=== PATIENT | female | born 1960 | race African-American/Black ===

== ENCOUNTER 2018-08-30 11:13 | Emergency (ER) | payer MEDICAID ==
[2018-08-30] MEDS ORDERED: SUCCINYLCHOLINE 20 MG/ML (10 ML) IV ONE (11:14)
[2018-08-30] MEDS ORDERED: Caclcium Chloride 10% INJ SYR IV ONE (11:14)
[2018-08-30] MEDS ORDERED: ETOMIDATE 20 MG/10 ML VIAL IV ONE (11:14)
--- OUTSIDE RECORDS SUMMARY | 2018-08-30 11:16 | XMS REPORT ---
:1960 [facility] Address [address] [place] [address] Dr. Mesa[address] [place] [id number] Care Team Providers Name Role Phone Unavailable Unavailable Unavailable Problems This patient has no known problems. Allergies, Adverse Reactions, Alerts This patient has no known allergies or adverse reactions. Medications This patient has no known medications.
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
[2018-08-30] MEDS ORDERED: RSI MEDICATION KIT IV ONE (11:20)
[2018-08-30] MEDS ORDERED: MIDAZOLAM HCL 2 MG/2 ML INJ ONE (11:34)
[2018-08-30 11:36] LABS: Absolute Lymphocytes (CBC) 0.6 K/uL (0.7-4.9); Absolute Monocytes 1.4 K/uL (0.1-1.3); Absolute Neutrophil 22.7 K/uL (1.8-8.0); Basophils % 0.2 % (0-1.3); Hematocrit 32.1 % (36.0-45.0); Lymphocytes % 2.5 % (15.3-44.8); MPV 8.8 fL (7.6-11.3); Monocytes % 5.7 % (3.3-12.3); RBC Red Blood Cell Count 3.85 M/uL (3.86-4.86)
[2018-08-30 11:44] LABS: Protime INR 1.06
[2018-08-30] MEDS ORDERED: Nicardipine/NS 25 MG/250 ML KIT IV ONE ×2 (11:46→13:31)
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
--- NOTE | 2018-08-30 11:46 | ER ---
Nurse's Notes 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 Avila at bedside to set up for intubation, RT at bedside. Transition of care: patient was not received from another setting of care. Onset of symptoms was August 30, 2018. Risk Assessment: Do you want to hurt yourself or someone else? Patient reports no desire to harm self or others. Initial Sepsis Screen: Does the patient meet any 2 criteria? No. Patient's initial sepsis screen is negative. Does the patient have a suspected source of infection? No. Patient's initial sepsis screen is negative. Care prior to arrival: Medication(s) given: Normal saline infusion, 500 mL, Labetalol 10 mg X 2, Narcan 2 mg IVP IV initiated. 18 GA, in the left antecubital area, Glucose check: 168 Oxygen administered. via AMBU bag. 11:12 Method Of Arrival: EMS: [facility] iw 11:12 Acuity: ROSITA 1 iw 11:21 Note last known well is 0930 this morning. iw 11:33 An acute neurological deficit is present. The patients blood glucose was checked before iw arriving to the hospital and was found to be normal. Triage Assessment: 11:15 The onset of the patients symptoms was August 30, 2018 at 09:45. General: Appears ill, iw Behavior is listless. Pain: Unable to use pain scale. Patient is unresponsive. Neuro: Reports pt not verbal. Stroke Activation: Physician: Stroke Attending; Name: ; Notified At: ; Arrived At: Physician: Chief Stroke Resident; Name: ; Notified At: ; Arrived At: Physician: Stroke Resident; Name: ; Notified At: ; Arrived At: Physician: ED Attending; Name: Dr. Avila; Notified At: 11:21; Arrived At: 11:21 Physician: ED Resident; Name: ; Notified At: ; Arrived At: Historical: - Allergies: 11:46 No Known Allergies; iw - Home Meds: 11:46 doxazosin 4 mg oral tab 2 tabs once daily [Active]; Dialyvite 100-1 mg oral tab 1 tab iw once daily [Active]; carvedilol 25 mg oral tab 1 tab 2 times per day [Active]; hydralazine 50 mg Oral tab three times a day [Active]; nifedipine 90 mg Oral tr24 twice a day [Active]; Vitamin D Oral daily [Active]; - PMHx: 11:51 Dialysis; Hypertension; iw - Immunization history:: Adult Immunizations unknown. - Social history:: Patient/guardian denies using alcohol, street drugs, The patient lives with family, Smoking status: unknown. - Family history:: not pertinent, pertinent for. - Ebola Screening: : Patient negative for fever greater than or equal to 101.5 degrees Fahrenheit, and additional compatible Ebola Virus Disease symptoms Patient denies exposure to infectious person Patient denies travel to an Ebola-affected area in the 21 days before illness onset No symptoms or risks identified at this time. Screenin:47 Abuse screen: Denies threats or abuse. Denies injuries from another. Nutritional iw screening: No deficits noted. Tuberculosis screening: No symptoms or risk factors identified. Fall Risk IV access (20 points). Assessment: 11:17 Reassessment: pt successfully intubated by Dr. Avila. iw 11:27 Reassessment: pt transported to Ct via stretcher, pt intubated, placed on monitor, iw accompanied by Jh, RN, and RT. 11:53 VAN Scoring: Arm Drift: Flaccid/no antigravity. T-PA (Activase) Screening: Indications: iw Contraindications: Intracranial hemorrhage and its risk factor and suspicion of subarachnoid bleed: Yes. 11:54 Reassessment: pt remains hypertensive at 216/118, cardene drip increased to 15 mg/hr, iw 99% on ventilator, awaiting acceptance to transferring facility. 11:58 Patient has been NPO before screening. The patient is not alert and/or unable to follow iw commands. Bedside swallow screen discontinued. Patient kept NPO until cleared by Speech Therapy or Physician. 11:58 pt is NPO N/A N/A, pt NPO The patient is unable to swallow own secretions without iw drooling or the need for suction. Bedside swallow screening discontinued. Patient kept NPO until cleared by Speech Therapy or Physician. N/A N/A The patient failed the bedside swallow screening. The patient will be kept NPO until cleared by Speech Therapy or Physician. Provider notified of bedside swallow screening results: Ramsey Avila MD. 12:02 Reassessment: Dr. Avila, speaking with pt family about POC and need for transfer. iw 12:37 Reassessment: pt remains on ventilator, respirations even and unlabored, BP down to iw 169/78, family at bedside. Vital Signs: 11:41 BP 226 / 113; Pulse 82; Resp 18 A; Pulse Ox 100% on ETT vent; Weight 99.79 kg (R); iw 11:52 BP 216 / 118; Pulse 91; Resp 16 A; Temp 95.2(C); Pulse Ox 99% on ETT vent; Pain 5/10; iw 12:01 BP 200 / 103; Pulse 93; Resp 18 A; Temp 97.3(C); Pulse Ox 100% on ETT vent; Pain 0/10; iw 12:08 BP 196 / 102; Pulse 87; Resp 20 A; Temp 98.1(C); Pulse Ox 99% on ETT vent; Pain 0/10; iw 12:22 BP 178 / 86; Pulse 86; Resp 24 S; Temp 98.3(O); Pulse Ox 100% on R/A; Weight 99.79 kg jl7 (R); 12:23 BP 178 / 86; Pulse 86; Resp 25 A; Pulse Ox 100% on ETT vent; Pain 0/10; iw 12:36 BP 163 / 79; Pulse 86; Resp 21 A; Temp 98.2(C); Pulse Ox 99% on ETT vent; Pain 0/10; iw 12:46 BP 169 / 79; Pulse 87; Resp 25 S; Temp 98.1(O); Pulse Ox 99% on R/A; jl7 NIH Stroke Scale Scores: 11:15 NIHSS Score: 16 iw 12:38 NIHSS Score: 20 iw ED Course: 11:00 Patient has correct armband on for positive identification. Placed in gown. Bed in low jl7 position. Call light in reach. Side rails up X2. secured entrance monitor on. Pulse ox on. NIBP on. Warm blanket given. 11:16 Patient arrived in ED. iw 11:17 Assisted provider with intubation using 7.5 mm ETT via oral route. ET tube secured at iw 23cm at the teeth. Set up intubation tray. Intubated by Ramsey Avila MD Placement verified by CXR, CO2 detector w/ + color change, auscultating bilateral breath sounds, Patient tolerated well. 11:21 Ramsey Avila MD is Attending Physician. ma2 11:24 CXR XRAY In Process Unspecified. EDMS 11:30 Missed attempt(s): 22 gauge in right hand. Bleeding controlled, band aid applied, ms catheter tip intact. 11:32 Triage completed. iw 11:34 CT Stroke Brain w/o Contrast In Process Unspecified. EDMS 11:35 initiated a transfer with Lexy at the [facility] transfer center. eb 11:43 Maintain EMS IV. Dressing intact. Good blood return noted. Site clean \T\ dry. Gauge \T\ iw site: 18 LAC. 11:[address] Christopher and sealer aircraft pulmonary nurse practitioner from [facility] for eb patient transfer consultation. 11:46 Hayley Pastor, RN is Primary Nurse. iw 12:04 Carroll cath inserted, using sterile technique, 18 Fr., by la, balloon inflated, to ms gravity drainage, urine specimen collected. 12:05 EKG done, by ED staff, reviewed by Ramsey Avila MD. ms 12:10 administrative approval given by Eren Iverson Coord/ Dr. Christopher has accepted eb the patient in transfer/ patient going to [address] [place] [address] bed 74/ report to be called to [phone]. 12:11 Urine collected: Carroll catheter specimen, clear, Amount Returned: 20mL. ms 12:15 Inserted saline lock: 22 gauge in right hand, using aseptic technique. jl7 12:44 Arm band placed on left wrist. jl7 14:15 Patient transferred, IV remains in place. iw Administered Medications: 11:15 Drug: Etomidate 20 mg Route: IVP; Site: left antecubital; 11:17 Follow up: Response: No adverse reaction; Patient is sedated iw 11:15 Drug: Succinylcholine 120 mg Route: IVP; Site: left antecubital; iw 11:17 Follow up: Response: Patient is sedated 11:25 Drug: Versed 5 mg Route: IVP; Site: left antecubital; 11:28 Follow up: Response: No adverse reaction; Patient is sedated 11:40 Drug: niCARdipine (25mg/250ml) 5 mg/hr Route: IV; Rate: calculated rate; Site: left iw antecubital; 11:56 Follow up: Rate change 15 mg/hr iw 12:51 Follow up: Response: No adverse reaction; Blood pressure is lowered iw 12:51 Follow up: IV Status: Infusion continued upon transfer 11:53 Not Given (Duplicate Order): Cardene 5 mg/hr IV at calculated rate continuous; 5mg/hr 12:27 Drug: NS 0.9% 1000 ml Route: IV; Rate: 1 bolus; Site: right hand; jl7 13:24 Follow up: IV Status: Infusion continued upon transfer [facility] 12:27 Drug: Propofol 5 mcg/kg/min Route: IV; Rate: calculated rate; Site: right hand; jl7 12:51 Follow up: IV Status: Infusion continued upon transfer Point of Care Testing: Blood Glucose: 11:17 Blood Glucose: 140 mg/dL; Ranges: Outcome: 11:45 ER care complete, transfer ordered by MD. garcia 14:16 Transferred by ground EMS by helicopter [facility], [facility] transported pt from [place] to [facility]. to [facility], Transfer form completed. X-rays sent w/ patient. 14:16 Condition: stable 14:16 Discharge instructions given to family, Instructed on the need for transfer, Demonstrated understanding of instructions. 14:17 Patient left the ED. NIH Stroke Scale - NIH Stroke Score Date: 08/30/2018 Time: 11:15 Total Score = 16 1a. Level of Consciousness (LOC) - 2(Not Alert, obtunded) 1b. Level of Consciousness (LOC) (Year \T\ Age) - 2(Neither) 1c. LOC Commands (Open \T\ Closes Eyes/[employer]) - 2(Neither) 2. Best Gaze (Lateral Gaze Paresis) - 0(Normal) 3. Visual Field Loss - 0(No visual loss) 4. Facial Palsy - 0(Normal) 5a. Left Arm: Motor (10-second hold) - 4(No movement) 5b. Right Arm: Motor (10-second hold) - 0(No drift) 6a. Left Leg: Motor (5-second hold - always test supine) - 4(No movement) 6b. Right Leg: Motor (5-second hold - always test supine) - 0(No drift) 7. Limb Ataxia (finger/nose \T\ heel/muhammad - test with eyes open) - 0(Absent) 8. Sensory Loss (pinprick arms/legs/face) - 0(Normal) 9. Best Language: Aphasia (description/naming/reading) - 2(Severe aphasia) 10. Dysarthria (speech clarity - read or repeat words) - 9(Intubated) - Notes: pt was bagged via BVM prior to arrival, unable to evaluate speech 11. Extinction and Inattention (visual/tactile/auditory/spatial/personal) - 0(No abnormality) Initials: NIH Stroke Scale - NIH Stroke Score Date: 08/30/2018 Time: 12:38 Total Score = 20 1a. Level of Consciousness (LOC) - 2(Not Alert, obtunded) 1b. Level of Consciousness (LOC) (Year \T\ Age) - 2(Neither) 1c. LOC Commands (Open \T\ Closes Eyes/Sales Ware[employer] Driver) - 2(Neither) 2. Best Gaze (Lateral Gaze Paresis) - 0(Normal) 3. Visual Field Loss - 0(No visual loss) 4. Facial Palsy - 0(Normal) 5a. Left Arm: Motor (10-second hold) - 4(No movement) 5b. Right Arm: Motor (10-second hold) - 0(No drift) 6a. Left Leg: Motor (5-second hold - always test supine) - 4(No movement) 6b. Right Leg: Motor (5-second hold - always test supine) - 0(No drift) 7. Limb Ataxia (finger/nose \T\ heel/muhammad - test with eyes open) - 0(Absent) 8. Sensory Loss (pinprick arms/legs/face) - 2(Severe to total loss) 9. Best Language: Aphasia (description/naming/reading) - 2(Severe aphasia) 10. Dysarthria (speech clarity - read or repeat words) - 9(Intubated) - Notes: pt intibated and not verbal 11. Extinction and Inattention (visual/tactile/auditory/spatial/personal) - 2(Profound) Initials: iw Signatures: Dispatcher [employer] EDHayley Mortensen, RN RN Diamante Ordoñez ms, Jahala, RN RN jl7 Ramsey Avila MD MD ma2 Cherie Spence Corrections: (The following items were deleted from the chart) 11:43 11:41 BP 226 / 113; Pulse 82bpm; Resp 18bpm; Assisted; Pulse Ox 100% ET / iw Ventilator; iw 11:54 11:52 BP 216 / 118; Pulse 91bpm; Resp 16bpm; Assisted; Pulse Ox 99% ET / iw Ventilator; 12:09 11:15 NIHSS Score: 14 [facility] 12:09 12:07 NIHSS Score: 16 [facility] 12:30 11:[address] Avila notified at 11:21, arrived at 11:21
--- NOTE | 2018-08-30 11:53 | RAD REPORT ---
EXAM DESCRIPTION: CT - Ct Stroke Brain Wo Cont - 08/30/2018 11:34 am CLINICAL HISTORY: Confusion COMPARISON: None. TECHNIQUE: Computed axial tomography of the head was obtained. IV contrast was not requested. All CT scans are performed using dose optimization technique as appropriate and may include automated exposure control or mA/KV adjustment according to patient size. FINDINGS: A 4.5 centimeter bleed is present within the right thalamus which extends into the fourth, third and lateral ventricles. There is shift of midline structures a couple millimeters to the left. Mild hydrocephalus suspected. No additional significant abnormality seen. IMPRESSION: 4.5 centimeter bleed in the right thalamus extending into the ventricles probably the se quela of hypertension. Examination was discussed with Dr. Bui in the Emergency Room at 11:41 a.m. August 30, 2018
--- NOTE | 2018-08-30 11:55 | RAD REPORT ---
EXAM DESCRIPTION: Marcos Single View08/30/2018 11:25 am CLINICAL HISTORY: Chest pain COMPARISON: October 16 FINDINGS: The lungs appear clear of acute infiltrate. The heart is mildly to moderately enlarged. Central venous catheter is in place. An endotracheal tube has its tip a couple centimeters above munir
[2018-08-30] MEDS ORDERED: PROPOFOL 1,000 MG/100 ML VIAL IV ONE (12:09)
[2018-08-30 12:31] LABS: Magnesium 2.1 mg/dL (1.8-2.4); Potassium 4.2 mmol/L (3.5-5.1); Troponin (Emerg Dept Use Only) 0.04 ng/mL (0.0-0.045)
[2018-08-30 12:58] LABS: Blood Morphology Comment NOT SEEN (NOT SEEN); Platelet Estimate ADEQ
[2018-08-30 13:54] LABS: Urine Blood 2+ (NEG); Urine Glucose TRACE (NEG); Urine Protein 3+ (NEG); Urine pH 8.5 (5.0-7.0)
--- NOTE | 2018-09-01 09:16 | EKG ---
Test Date: 2018-08-30 Test Time: 12:01:19 Pan Washer Hand: MEASUREMENT RESULTS: Intervals: Rate: 94 PA: 150 QRSD: 88 QT: 390 QTc: 487 Grayson: P: 48 PA: 150 QRS: -37 T: 56 INTERPRETIVE STATEMENTS: Sinus rhythm with premature atrial complexes Left axis deviation Prolonged QT Abnormal ECG No previous ECG available for comparison Electronically Signed On 09-01-18 09:15:56 ROASTER SUPERVISOR by Juma Rodriguez
== END 2018-08-30 14:17 | disposition short-term general hospital (02) ==
LOC: ER 11:13
PROC: 0BH17EZ Insertion of Endotracheal Airway into Trachea, Via Natural or Artificial Opening (ICD-10-PCS; principal; 2018-08-30)
PROC: 5A1935Z Respiratory Ventilation, Less than 24 Consecutive Hours (ICD-10-PCS; 2018-08-30)
DX: I62.9 Nontraumatic intracranial hemorrhage, unspecified (principal); I69.254 Hemiplegia and hemiparesis following other nontraumatic intracranial hemorrhage affecting left non-dominant side; R29.716 NIHSS score 16; I10 Essential (primary) hypertension; Z99.2 Dependence on renal dialysis; Z86.73 Personal history of transient ischemic attack (TIA), and cerebral infarction without residual deficits
CPT/HCPCS: 31500; 36415; 51702; 70450; 71045; 80048; 81003; 82150; 82962; 83690; 83735; 84484; 85025; 85610; 85730; 93005; 94002; 99291; J0330; J2250; J2704